=== PATIENT | female | born 1995 | race Caucasian/White ===

== ENCOUNTER 2018-12-12 10:38 | Emergency (ER) | payer OTHER ==
[~2018-12-12] VITALS: Ht 139.7 cm; Wt 39.4 kg
[2018-12-12 10:43] VITALS: BP 127/70; PULSE 64; RESP 18; Ht 139.7 cm; Wt 39.4 kg
[2018-12-12] MEDS ORDERED: AMOX1TAB10 PO (11:11)
[2018-12-12] MEDS ORDERED: BACI28.34 TOP (11:11)
[2018-12-12] MEDS ORDERED: DIPHTH/TET/ACEL PERTUSS (ADULT) 0.5 ML VIAL IM* ONE (11:30)
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
== END 2018-12-12 11:36 | disposition home or self-care (01) ==
LOC: FTE 10:38
DX: S61.432A Puncture wound without foreign body of left hand, initial encounter (principal); W55.01XA Bitten by cat, initial encounter; Y92.9 Unspecified place or not applicable; Z23 Encounter for immunization
CPT/HCPCS: 90471; 90715